=== PATIENT | male | born 1930 | race Caucasian/White ===

== ENCOUNTER 2019-07-17 11:15 | Day surgery (SDC) | payer MEDICARE ==
[~2019-07-17] VITALS: Ht 185.4 cm; Wt 120.0 kg
[2019-07-17] VITALS (10 sets, daily range): BP systolic 128–184; BP diastolic 80–127
[2019-07-17] MEDS ORDERED: LORazepam 0.5 MG tablet PO PRN (11:40)
[2019-07-17] MEDS ORDERED: normal saline 1,000 ML IV SCH (11:40)
[2019-07-17] MEDS ORDERED: diphenhydrAMINE 25mg capsule PO PRN (11:40)
[2019-07-17] MEDS ORDERED: nitroGLYCERIN 0.4mg SUBLingual tab SL PRN (11:40)
[2019-07-17 12:19] LABS: BASOPHILS # (AUTO) 0.1 X10'3 (0-0.2); BASOPHILS % (AUTO) 1.4 % (0-1); EOSINOPHILS # (AUTO) 0.1 X10'3 (0-0.9); EOSINOPHILS % (AUTO) 2.4 % (0-6); HEMATOCRIT 43.3 % (42.0-52.0); HEMOGLOBIN 14.7 g/dl (14.0-17.9); LYMPHOCYTES # (AUTO) 1.8 X10'3 (1.1-4.8); LYMPHOCYTES % (AUTO) 30.2 % (21-51); MEAN CORPUSCULAR HEMOGLOBIN 30.6 PG (27.0-31.0); MEAN CORPUSCULAR HGB CONC 33.9 g/dL (33.0-36.5); MEAN CORPUSCULAR VOLUME 90.2 FL (78-98); MEAN PLATELET VOLUME 8.5 FL (7.4-10.4); MONOCYTES # (AUTO) 0.4 X10'3 (0-0.9); MONOCYTES % (AUTO) 7.1 % (2-12); NEUTROPHILS # (AUTO) 3.5 X10'3 (1.8-7.7); NEUTROPHILS % (AUTO) 58.9 % (42-75); PLATELET COUNT 148 X10'3 (140-440); RED BLOOD COUNT 4.79 X10'6 (4.70-6.10); RED CELL DISTRIBUTION WIDTH 13.5 % (11.5-14.5)
[2019-07-17 12:27] LABS: PARTIAL THROMBOPLASTIN TIME 27 SECONDS (22-32)
[2019-07-17 12:41] LABS: ALBUMIN 3.8 G/DL (3.4-5.0); ANION GAP 7 (8-16); BLOOD UREA NITROGEN 22 MG/DL (7-18); BUN/CREATININE RATIO 15.9 (5.4-32.0); CALCIUM 9.1 MG/DL (8.5-10.1); CHLORIDE 105 MMOL/L (99-107); CREATININE 1.38 MG/DL (0.60-1.10); GLUCOSE 159 MG/DL (70-104); POTASSIUM 4.3 MMOL/L (3.5-5.1); SODIUM 138 MMOL/L (135-145); TOTAL CARBON DIOXIDE 25.8 MMOL/L (24-32); eGFR 49 ML/MIN
[2019-07-17] MEDS ORDERED: TEMA30CA PO (12:58)
[2019-07-17] MEDS ORDERED: LEVO50TA PO (12:58)
[2019-07-17] MEDS ORDERED: ASPI81TA52 PO (12:58)
[2019-07-17] MEDS ORDERED: BUS15T PO (12:58)
[2019-07-17] MEDS ORDERED: LOSA50TA3 PO (12:58)
[2019-07-17] MEDS ORDERED: VILA40TA PO (12:58)
[2019-07-17] MEDS ORDERED: FORM20VI IH (12:58)
[2019-07-17] MEDS ORDERED: METF500T PO (12:58)
[2019-07-17] MEDS ORDERED: LIDOcaine 1% (10mg/ml)w/preservative injection 20ml MDV ONE (13:14)
[2019-07-17] MEDS ORDERED: fentaNYL/PF 50MCG/1 ML 2ML syringe ONE (13:14)
[2019-07-17] MEDS ORDERED: iohexol 350 MG/ML 50ML vial IV ONE ×2 (13:14→13:53)
[2019-07-17] MEDS ORDERED: midazolam 2 mg/2 ml injection ONE ×2 (13:14→14:05)
[2019-07-17] MEDS ORDERED: iohexol 350MG/ML 100ml bottle IV ONE (13:14)
[2019-07-17] MEDS ORDERED: heparin 1,000 UNITS/NS 500ml 500 ML ONE (13:15)
[2019-07-17 14:31] LABS: ISTAT HGB ART 12.9 g/dl (14.0-18.0); ISTAT Hct ART 38 %PCV (42-52); ISTAT O2 SATURATION ARTERIAL 92 % (95-98); ISTAT SOURCE ART
[2019-07-17 14:31] LABS: ISTAT Hct MIX 38 %PCV (42-52); ISTAT O2 SATURATION MIX VENOUS 68 % (60-80); ISTAT SOURCE MIX
[2019-07-17] MEDS ORDERED: proCHLORperazine 10 MG/2 ml inj IV PRN (15:00)
[2019-07-17] MEDS ORDERED: HYDROcodone/acetaminophen 5mg/325mg tablet PO PRN (15:00)
[2019-07-17] MEDS ORDERED: ondansetron/PF 4mg/2ml inj IV PRN (15:00)
[2019-07-17] MEDS ORDERED: HYDROcodone/acetaminophen 10/325mg tab PO PRN (15:00)
[2019-07-17] MEDS ORDERED: OXAZEpam 15mg capsule PO PRN (15:00)
[2019-07-17] MEDS ORDERED: losartan 50mg tablet PO SCH (16:15)
== END 2019-07-17 20:00 | disposition home or self-care (01) ==
LOC: SSTAY O 11:15 → MED 3N 11:23 → SSTAY O 20:00
PROVIDERS: ATTEND Internal Medicine Cardiovascular Disease
DX: R94.39 Abnormal result of other cardiovascular function study (principal); I25.119 Atherosclerotic heart disease of native coronary artery with unspecified angina pectoris; I10 Essential (primary) hypertension; J44.9 Chronic obstructive pulmonary disease, unspecified; E78.5 Hyperlipidemia, unspecified; E11.9 Type 2 diabetes mellitus without complications; I35.1 Nonrheumatic aortic (valve) insufficiency; G47.33 Obstructive sleep apnea (adult) (pediatric); F32.9 Major depressive disorder, single episode, unspecified; E66.9 Obesity, unspecified; Z68.34 Body mass index [BMI] 34.0-34.9, adult; Z87.891 Personal history of nicotine dependence; Z79.82 Long term (current) use of aspirin; Z79.899 Other long term (current) drug therapy; Z79.01 Long term (current) use of anticoagulants
CPT/HCPCS: 36415; 71046; 80048; 82803; 82948; 83036; 85014; 85025; 85610; 85730; 93005; 93460; 93567; 99152; 99153; C1769; J1644; J2001; J2250; J3010; J7030; Q0163; Q9967; A6258; C1760

== ENCOUNTER 2019-08-01 15:27 | Outpatient (CLI) | payer MEDICARE ==
[~2019-08-01] VITALS: Ht 185.4 cm; Wt 120.2 kg
[~2019-08-01 15:27] MED LIST: ASPI81TA52 PO; BUS15T PO; FORM20VI IH; LEVO50TA PO; LOSA50TA3 PO; METF500T PO; TEMA30CA PO; VILA40TA PO
[2019-08-01 15:51] LABS: TOTAL HEMOGLOBIN 15.2 G/dl (14.0-17.9)
[2019-08-01] MEDS ORDERED: albuterol 2.5 MG/3 ML nebule NEB ONE (16:15)
== END 2019-08-01 23:59 | disposition home or self-care (01) ==
LOC: RT 15:27
PROVIDERS: ATTEND Internal Medicine Cardiovascular Disease
DX: J44.9 Chronic obstructive pulmonary disease, unspecified (principal); R06.02 Shortness of breath; J98.8 Other specified respiratory disorders
CPT/HCPCS: 85018; 94060; 94727; 94729; 94760